=== PATIENT | female | born 1985 | race Caucasian/White ===

== ENCOUNTER → 2016-10-21 | Outpatient (CLI) | payer MEDICAID, OTHER ==
--- NOTE | 2016-10-21 12:00 | US ---
October 21, [address] White, Thank you for requesting consultation and a ultrasound to evaluate anatomy and her history of glomerulonephritis for your patient, Mrs. Lackey. As you know, Amy is a 31 year old G 2, P 1001 with a waggoner dating 19 w 1 d; CORTNEY of 03/15/17 by LMP of 06/09/16. Amy has been seen and evaluated at [facility] for hematuria and proteinuria. She is bel ieved to have IgA nephropathy versus minimal change disease based on their initial workup. She follo ws up annually with them. She has a normal creatinine for . ULTRASOUND Number of fetuses: 1 Placental location: Posterior Placental cord insertion: Intraplacental presentation: Breech Cervix: 3.8 cm viewed transabdominally Maximum Vertical Pocket: 4.0 cm The adnexa were evaluated. No pathology was seen. Right ovary is visualized and seen as normal. It measures 5.1 x 2.2 x 3.2 cm. Left ovary is visualized and seen as normal. It measures 3.4 x 1.5 x 2.6 cm. MEASUREMENTS: Biparietal diameter: 44 mm 19 weeks, 2 days Head circumference: 171 mm 19 weeks, 5 days Abdominal circumference: 144 mm 19 weeks, 6 days Femur length: 32 mm 20 weeks, 0 days Humerus length: 31 mm 20 weeks, 3 days Transcerebellar diameter: 21 mm 19 weeks, 5 days Average ultrasound age: 19 weeks, 5 days Estimated weight: 313 gm weight percentile: 82% ANATOMY Supratentorial brain: Normal including views of the falx, cavum septum pellucidum and choroids Lateral Ventricle: Normal, measuring 4.7 mm Posterior fossa: Normal including the cerebellum and cisterna magna Spine: Normal Nuchal fold: 3.2 mm normal Face: Normal views of the lip and nose area Profile: Normal Palate: Normal appearance of the alveolar ridge Heart: Four Chamber View: Normal including the intraventricular Septum LVOT: Normal RVOT: Normal 3VV: Normal Tracheal View: Normal Aortic Arch: Seen Ductal Arch: Seen SVC/IVC: Seen Heart Rate 147 bpm Diaphragm: Normal appearance without overt abnormality detected Stomach: Normal Umbilical cord insertion: Normal Right kidney: Normal Left kidney: Normal Bladder: Normal Number of cord vessels: Three Upper extremities: Normal Lower extremities: Normal Gender: Male IMPRESSION: 1. Intrauterine at 19 w 1 d, ultrasound is consistent with her established CORTNEY of 03/16/17 . 2. Normal anatomical survey. 3. Cervical length is normal at 3.8 cm without evidence of insufficiency. 4. Known proteinuria in ; suspected IgA nephropathy versus minimal change disease RECOMMENDATIONS: I was pleased to review today's ultrasound with your patient and her spouse. I reassured them that t he baby is growing appropriately with normal amniotic fluid volume. Our detailed review of the anatomy did not reveal any overt abnormalities. We discussed her history of hematuria and proteinuria in the context of the evaluation by nephrology. Fortunately, to date, there is no evidence of a serious glomerulonephritis and compromised renal fu nction. I explained that most women with this type of nephropathy do quite well in . She is very likely going to have increased proteinuria as progresses as the renal plasma flow guerrero bles. Proteinuria would not be helpful in the assessment of preeclampsia, and those other clinical p arameters including uncontrolled blood pressures, other labs and symptoms would have to be evaluated. Women with renal disease are at risk for developing preeclampsia, but lower risk for the type of ne phropathy that she has particularly with normal blood pressures and renal function. Amy may hav e more peripheral edema with the changes in her body water volume and level of protein. I recommend: 1. Baseline proteinuria in a 24 hour urine specimen. 2. Reevaluate growth at 32 weeks. 3. Routine care. 4. Close surveillance for symptoms/signs worrisome for preeclampsia. Thank you for allowing us the opportunity to evaluate your patient. Should you have any further ques tions or concerns please do not hesitate to contact me. Approximately 30 minutes were spent with the patient and 20 minutes were spent in face to face consu ltation. Mariela Brennan MD [employer] Prevention Officer Maternal Medicine Diagnosis Department of Obstetrics & Gynecology [facility]
--- NOTE | 2016-10-21 15:00 | US ---
Ultrasound Obstetric Detailed Evaluation Indication: Maternal history of glomerulonephritis. The estimated gestational age by LMP is 19 week s and 1 days yielding an EDC of March 12, 2017. Comparison: None. Findings: Number: 1 Presentation: Breech Placental Location: Posterior Cervix: 3.8 cm MVP: 4 cm Heart Rate: 147 bpm. Right ovary measures 5.1 x 2.2 x 3.2 cm. Left ovary measures 3.5 x 2.6 x 1.5 cm. Biometry: Biparietal Diameter: 43.77 mm 19 weeks, 2 days Head Circumference: 170.92 mm 19 weeks, 5 days Abdominal Circumference: 143.85 mm 19 weeks, 6 days Femur Length: 31.91 mm 20 weeks, 0 days Humerus Length: 31.28 mm 20 weeks, 3 days Transcerebellar Diameter: 20.66 mm 19 weeks, 5 days HC/AC: 1.19 (1.09 - 1.26) FL/BPD: 73% FL/AC: 22% Average Ultrasound Age: 19 weeks, 5 days EDC Based on Today's Average Ultrasound Age: March 12, 2017 Estimated weight is 313 gms +/- 46 gms. The estimated weight is at the 82 % based on previous dating. ANATOMY SURVEY: Supratentorial Brain: Normal Posterior Fossa: Normal Spine: Normal Nuchal fold: Normal Nose and Lips: Normal Facial Profile: Normal Heart: Four chamber heart. 147 bpm. Intact intraventricular septum. Cardiac Outflow Tracts: Normal Stomach: Normal Umbilical Cord Insertion: Normal Kidneys: Normal, no pyelectasis Bladder: Normal Number of Cord Vessels: Three Upper Extremities: Visualized Lower Extremities: Visualized. Impression: 1. Living waggoner in breech presentation. 2. Size concordant with dates. 3. No overt anomalies detected. 4. Please see Dr. Mariela Brennan consult and recommendations.
== END ==
LOC: FIMAGING 08:46
PROVIDERS: ATTEND Obstetrics & Gynecology
DX: O12.12 Gestational proteinuria, second trimester (principal); Z3A.19 19 weeks gestation of pregnancy

== ENCOUNTER → 2017-01-18 | Outpatient (CLI) | payer OTHER | LOC: FIMAGING 09:22 | PROVIDERS: ATTEND Obstetrics & Gynecology | DX: O26.833 Pregnancy related renal disease, third trimester (principal); O24.420 Gestational diabetes mellitus in childbirth, diet controlled; Z3A.32 32 weeks gestation of pregnancy ==